=== PATIENT | female | born 1965 | race Caucasian/White ===

== ENCOUNTER 2018-09-06 06:33 | Day surgery (SDC) | payer OTHER ==
[2018-09-06] MEDS ORDERED: BALANCED SALT SOLN 15 ML OPH IRRIG (07:00)
[2018-09-06] MEDS: SOD CHLORIDE 0.9% 1,000 ML IV (07:56)
[2018-09-06] MEDS: MOXIFLOXACIN 0.5% 3 ML OPH OPER (07:56)
[2018-09-06] MEDS: MITOMYCIN 5 MG INJ RIGHT EYE (09:00)
[2018-09-06] MEDS ORDERED: BUPIVACAINE 0.5% (SDV) 30 ML INJ (09:27)
[2018-09-06] MEDS ORDERED: LIDOCAINE 1% (MPF) 30 ML INJ (09:28)
[2018-09-06] MEDS ORDERED: PROPOFOL 20 ML (09:45)
[2018-09-06] MEDS: TETRACAINE 0.5% 4 ML OPH (09:58)
[2018-09-06] MEDS: TOBRAMYCIN 0.3% 3.5 GM OPH OINT (09:59)
[2018-09-06] MEDS: LIDOCAINE 1.5%/EPI MPF (SDV) 30 ML VIAL (09:59)
[2018-09-06] MEDS ORDERED: FENTAnyl 50 MCG/ML VIAL IV (10:00)
[2018-09-06] MEDS ORDERED: HYDROmorphONE 1 MG/5 ML IV SYRINGE IV (10:00)
[2018-09-06] MEDS ORDERED: ONDANSETRON 4 MG INJ IV (10:00)
[2018-09-06] MEDS ORDERED: OXYCODONE/ACETAMINOPHEN (5/325) TAB PO (10:00)
== END 2018-09-06 11:41 | disposition home or self-care (01) ==
LOC: SDS 06:33
DX: H11.001 Unspecified pterygium of right eye (principal)
CPT/HCPCS: 65420